=== PATIENT | male | born 1955 ===

== ENCOUNTER 2016-05-31 13:51 | Inpatient (IN) | payer OTHER ==
--- NOTE | 2016-05-31 14:12 | ED PDOC ---
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 History obtained through scribe who translated for patient. Patient describes his pain as a pressure sensation with radiation to the left shoulder yesterday. He states his pain is worse when taking deep breaths but not necessarily worse with movement or cough. Patient notes dizziness, near- syncope, shortness of breath and 1 episode of non-bilious non-bloody vomiting prior to arrival. Patient currently denies any pain or other symptoms. Patient denies any fever, nausea, diarrhea, abdominal pain, urinary symptoms or any other complaints. PMD: Dr. Haley Time/Duration: Other (2-3 days) Symptom Course: Unchanged Quality: Other Context: Home Past Medical History - Provider Review Nursing Documentation Reviewed: Yes - Infectious Disease Hx of Infectious Diseases: None - Tetanus Immunization Tetanus Immunization: Unknown - Cardiac Hx Hypertension: Yes - Endocrine/Metabolic Hx Diabetes Mellitus Type 2: Yes - Musculoskeletal/Rheumatological Hx Falls: No - Psychiatric Hx Depression: No Hx Emotional Abuse: No Hx Physical Abuse: No Hx Substance Use: No - Surgical History Hx Cardiac Catheterization: Yes (4 years ago negative) - Suicidal Assessment Feels Threatened In Home Enviroment: No Family/Social History - Physician Review Nursing Documentation Reviewed: Yes Family/Social History: No Known Family HX Smoking Status: Never Smoked Hx Alcohol Use: No Hx Substance Use: No Hx Substance Use Treatment: No Allergies/Home Meds Allergies/Adverse Reactions: Allergies No Known Allergies Allergy (Verified 11/04/13 05:46) Home Medications: Home Meds Medication Instructions Recorded Confirmed Unobtainable 05/31/16 05/31/16 Review of Systems - Physician Review All systems were reviewed & negative as marked: Yes - Review of Systems Constitutional: absent: Fevers Eyes: absent: Vision Changes Respiratory: SOB. absent: Cough Cardiovascular: Chest Pain, Other (Near-syncope) Gastrointestinal: Vomiting. absent: Abdominal Pain, Diarrhea, Nausea Genitourinary Male: absent: Dysuria, Frequency, Hematuria, Urinary Output Changes Musculoskeletal: absent: Back Pain Neurological: Dizziness Endocrine: absent: Diaphoresis, Polyuria Physical Exam Vital Signs Temp Pulse Resp BP Pulse Ox 05/31/16 14:00 98.1 F 72 16 149/93 H 98 Temperature: Afebrile Blood Pressure: Normal Pulse: Regular Respiratory Rate: Normal Appearance: Positive for: Well-Appearing, Non-Toxic, Comfortable Pain Distress: None Mental Status: Positive for: Alert and Oriented X 3 - Systems Exam Head: Present: Atraumatic, Normocephalic Pupils: Present: PERRL Conjunctiva: Present: Normal Mouth: Present: Moist Mucous Membranes Pharnyx: Present: Normal. No: ERYTHEMA Neck: Present: Normal Range of Motion Respiratory/Chest: Present: Clear to Auscultation, Good Air Exchange. No: Respiratory Distress, Accessory Muscle Use Cardiovascular: Present: Regular Rate and Rhythm, Normal S1, S2. No: Murmurs Abdomen: Present: Normal Bowel Sounds. No: Tenderness, Distention, Peritoneal Signs Back: Present: Normal Inspection Upper Extremity: Present: Normal Inspection. No: Cyanosis, Edema Lower Extremity: Present: Normal Inspection. No: Edema Neurological: Present: GCS=15, CN II-XII Intact, Speech Normal Skin: Present: Warm, Dry, Normal Color. No: Rashes Psychiatric: Present: Alert, Oriented x 3, Normal Insight, Normal Concentration Medical Decision Making ED Course and Treatment: 05/31/16 14:06 Impression: A 61 year old male with left sided chest pain. Patient notes dizziness, near- syncope, shortness of breath and 1 episode vomiting. Patient currently denies any pain. Differential Diagnosis included but are not limited to: ACS vs GERD vs pneumonia vs anxiety Plan: -- Chest xray -- Labs -- Aspirin -- Reassess and disposition Progress Notes: Report Date : 05/31/2016 15:00:58 Procedure: Chest xray Dictator : Alexi Morales MD IMPRESSION: No active disease. 05/31/16 15:19 EKG is unremarkable with unremarkable CXR and labs. Patient is high risk for acs with multiple risk factors and will need to be observed further on tele. Discussed with Dr. Ashleigh Santana. - Lab Interpretations Lab Results: 05/31/16 14:14 05/31/16 14:14 Lab Results 05/31/16 14:47: pO2 44, VBG pH 7.37, VBG pCO2 47.0, VBG HCO3 27.2, VBG Total CO2 28.6 H, VBG O2 Sat (Calc) 84.6 H, VBG Base Excess 1.3, VBG Potassium 3.8, Sodium 136.0, Chloride 104.0, Glucose 177 H, Lactate 2.8 H, FiO2 21.0, Venous Blood Potassium 3.8 05/31/16 14:14: WBC 13.1 H, RBC 4.50, Hgb 14.0, Hct 40.1 L, MCV 89.1, MCH 31.1, MCHC 34.9, RDW 12.5, Plt Count 286, MPV 9.9, Gran % 46.0 L, Lymph % (Auto) 43.6 H, [place] % (Auto) 8.2 H, Eos % (Auto) 2.0, Baso % (Auto) 0.2, Gran # 6.04, Lymph # 5.7 H, [place] # 1.1 H, Eos # 0.3, Baso # 0.03, PT 10.7, INR 0.99, APTT 26.8, Sodium 138, Chloride 98, Potassium 3.9, Carbon Dioxide 27, Anion Gap 17, BUN 12 , Creatinine 0.6, Est GFR ( Amer) > 60, Est GFR (Non-Af Amer) > 60, Random Glucose 176 H, Calcium 9.9, Total Bilirubin 0.5, AST 32, ALT 41, Alkaline Phosphatase 77, Lactate Dehydrogenase 402, Total Creatine Kinase 74, Troponin I < 0.01, NT-Pro-B Natriuret Pep 114, Total Protein 7.9, Albumin 4.4, Globulin 3.5, Albumin/Globulin Ratio 1.3, Lipase 198 I have reviewed the lab results: Yes - RAD Interpretation Radiology Orders: 05/31/16 14:09 CHEST PORTABLE [RAD] Stat - EKG Interpretation EKG Interpretation (Text): 05/31/16 15:21 sinus tachycardia @ 101 with LAD; normal intervals, normal axis. There is pseudonormalization of multiple T waves c/w EKG 05/2012. Interpreted by ED Physician: Yes Type: 12 lead EKG Comparison: Different from prev. EKG - Medication Orders Current Medication Orders: Discontinued Medications Aspirin (Aspirin Chewable) 324 mg PO STAT STA Stop: 05/31/16 14:11 Last Admin: 05/31/16 14:27 Dose: 324 MG Famotidine (Pepcid) 20 mg IVP STAT STA Stop: 05/31/16 14:33 Ondansetron HCl (Zofran Inj) 4 mg IVP STAT STA Stop: 05/31/16 14:33 - Scribe Statement The provider has reviewed the documentation as recorded by the Zariaibfavio Lee Provider Scribe Attestation: All medical record entries made by the Scribe were at my direction and personally dictated by me. I have reviewed the chart and agree that the record accurately reflects my personal performance of the history, physical exam, medical decision making, and the department course for this patient. I have also personally directed, reviewed, and agree with the discharge instructions and disposition. Disposition/Present on Arrival - Present on Arrival Any Indicators Present on Arrival: No History of DVT/PE: No History of Uncontrolled Diabetes: No Urinary Catheter: No History Surgical Site Infection Following: None - Disposition Have Diagnosis and Disposition been Completed?: Yes Diagnosis: Chest pain Disposition: HOSPITALIZED Disposition Time: 15:25 Patient Plan: Observation, Telemetry Condition: GOOD Discharge Instructions (ExitCare): Chest Pain (ED)
[2016-05-31 14:17] LABS: ADD MANUAL DIFF? NO
[2016-05-31 14:18] LABS: BASO # 0.03 K/mm3 (0.0-2.0); BASO % 0.2 % (0.0-3.0); EOS # 0.3 (0.0-0.7); GRAN # 6.04 (1.4-6.5); HEMATOCRIT 40.1 % (42.0-52.0); LYMPH # 5.7 (1.2-3.4); LYMPH % 43.6 % (22.0-35.0); MEAN CELL VOLUME 89.1 fL (80.0-105.0); MEAN CORPUSCULAR HEMOGLOBIN 31.1 pg (25.0-35.0); MEAN CORPUSCULAR HGB CONC 34.9 g/dl (31.0-37.0); MEAN PLATELET VOLUME 9.9 fl (7.0-11.0); MONO # 1.1 (0.1-0.6); MONO % 8.2 % (1.0-6.0); PLATELET COUNT 286 10^3/uL (120.0-450.0); RED CELL DISTRIBUTION WIDTH 12.5 % (11.5-14.5); WHITE BLOOD COUNT 13.1 10^3/ul (4.5-11.0)
[2016-05-31 14:27] LABS: ALB/GLOB RATIO 1.3 (1.1-1.8); ALKALINE PHOSPHATASE 77 U/L (38-133); ALT/SGPT 41 U/L (7-56); AST/SGOT 32 U/L (15-59); BILIRUBIN,TOTAL 0.5 mg/dL (0.2-1.3); BLOOD UREA NITROGEN 12 mg/dL (7-21); CALCIUM 9.9 mg/dL (8.4-10.5); CARBON DIOXIDE 27 mmol/L (21-33); CHLORIDE 98 mmol/L (98-107); GFR AFRICAN-AMERICAN > 60; GLUCOSE,RANDOM 176 mg/dL (70-110); LIPASE 198 U/L (23-300); POTASSIUM 3.9 mmol/L (3.6-5.0); SODIUM 138 mmol/L (132-148); TOTAL PROTEIN 7.9 g/dL (5.8-8.3)
[2016-05-31 14:28] LABS: INR 0.99 (0.93-1.08); PARTIAL THROMBOPLASTIN TIME 26.8 Seconds (23.7-30.8)
[2016-05-31 14:40] LABS: TROPONIN I < 0.01 ng/mL
[2016-05-31 14:49] LABS: VENOUS BLOOD GAS BASE EXCESS 1.3 mmol/L (0.0-2.0); VENOUS BLOOD PH 7.37 (7.32-7.43)
--- NOTE | 2016-05-31 15:02 | RAD ---
HISTORY: chest pain COMPARISON: No prior. FINDINGS: LUNGS: Low lung volumes. Likely poor inspiratory effort. No infiltrate. PLEURA: No significant pleural effusion identified, no pneumothorax apparent. CARDIOVASCULAR: Normal. OSSEOUS STRUCTURES: No significant abnormalities. VISUALIZED UPPER ABDOMEN: Normal. OTHER FINDINGS: None. IMPRESSION: No active disease.
--- NOTE | 2016-05-31 17:59 | CP.PCM.HP ---
<Trent Camp - Last Filed: 05/31/16 18:44> History of Present Illness - History of Present Illness History of Present Illness: 61M [place] speaking with pmh of HTN, DM2, Hypothyroidism presents to the ED with complaint of intermittent chest pain for 3 days and dizziness that became worse this morning. The pain is sharp and non-radiating. Deep breaths, palpation of sternum, and exertion make his pain worse. He also complains nausea and non-bloody, non-bilious vomiting earlier today on his way to the hospital. Currently, he does not have any chest pain and denies headache, LOC, changes in vision/hearing, back pain or any GI/ symptoms. PMD: Dr. 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 absent: Fever, Headache, Weakness - EENT Eyes: absent: Blurred Vision, Change in Vision Ears: absent: Ear Pain, Tinnitus Nose/Mouth/Throat: absent: Nasal Congestion, Nasal Discharge - Cardiovascular Cardiovascular: Chest Pain, Chest Pain at Rest, Chest Pain with Activity, Dyspnea - Respiratory Respiratory: Dyspnea. absent: Cough, Hemoptysis - Gastrointestinal Gastrointestinal: Nausea, Vomiting. absent: Abdominal Pain, Constipation, Diarrhea - Genitourinary Genitourinary: absent: Difficulty Urinating, Dysuria, Urinary Incontinence - Musculoskeletal Musculoskeletal: absent: Back Pain, Muscle Weakness, Neck Pain - Integumentary Integumentary: absent: Rash, Skin Pain, Wounds - Neurological Neurological: Dizziness. absent: Behavioral Changes, Numbness, Focal Weakness, Headaches, Syncope - Psychiatric Psychiatric: Anxiety - Endocrine Endocrine: Cold Intolorance. absent: Fatigue, Polydipsia, Polyphagia Past Patient History - Infectious Disease Hx of Infectious Diseases: None - Tetanus Immunizations Tetanus Immunization: Unknown - Past Medical History & Family History Past Medical History?: Yes Pertinent Family History: FH sig for hypertension - Past Social History Smoking Status: Never Smoked Chewing Tobacco Use: No Cigar Use: No Alcohol: None Drugs: Denies Home Situation {Lives}: Friends - CARDIAC Hx Hypertension: Yes - ENDOCRINE/METABOLIC Hx Diabetes Mellitus Type 2: Yes Hx Hypothyroidism: Yes - MUSCULOSKELETAL/RHEUMATOLOGICAL Hx Falls: No - PSYCHIATRIC Hx Depression: No Hx Emotional Abuse: No Hx Physical Abuse: No Hx Substance Use: No - SURGICAL HISTORY Hx Cardiac Catheterization: Yes (4 years ago negative) Meds Allergies/Adverse Reactions: Allergies Allergy/AdvReac Type Severity Reaction Status Date / Time No Known Allergies Allergy Verified 11/04/13 05:46 Physical Exam - Constitutional Appears: Well, Non-toxic, No Acute Distress - Head Exam Head Exam: ATRAUMATIC, NORMOCEPHALIC - Eye Exam Eye Exam: EOMI - ENT Exam ENT Exam: Mucous Membranes Moist - Neck Exam Neck exam: Positive for: Full Rom, Normal Inspection. Negative for: Lymphadenopathy - Respiratory Exam Respiratory Exam: Clear to Auscultation Bilateral, NORMAL BREATHING PATTERN. absent: Rhonchi, Wheezes - Cardiovascular Exam Cardiovascular Exam: REGULAR RHYTHM, RRR, +S1, +S2. absent: JVD Additional comments: pain on palpation of sternum - GI/Abdominal Exam GI & Abdominal Exam: Normal Bowel Sounds, Soft. absent: Tenderness - Extremities Exam Extremities exam: Positive for: full ROM. Negative for: joint swelling, pedal edema - Back Exam Back exam: NORMAL INSPECTION. absent: paraspinal tenderness, rash noted - Neurological Exam Neurological exam: Alert, CN II-XII Intact, Oriented x3 - Psychiatric Exam Psychiatric exam: Anxious, Normal Affect, Normal Mood - Skin Skin Exam: Dry, Intact, Normal Color, Warm Results - Vital Signs Recent Vital Signs: Last Vital Signs Temp 98.1 F 05/31/16 14:00 Pulse 72 05/31/16 14:00 Resp 16 05/31/16 14:00 BP 149/93 H 05/31/16 14:00 Pulse Ox 98 05/31/16 14:00 - Labs Result Diagrams: 05/31/16 14:14 05/31/16 14:14 Assessment & Plan (1) Chest pain Status: Acute (2) Dizziness Status: Acute - Assessment and Plan (Free Text) Assessment: 61M with pmh of HTN, DM2 presents with chest pain(ACS vs MSK) and dizziness ( neuro vs cardio). ACS work up negative in ED, will continue to follow up trops. Plan: Chest Pain CXR - No Active Dz EKG - unremarkable, sinus tacky at 101, normal axis, normal interval (see report for further details) EKG 06/01 Trop x1 negative Cardio consult: Dr. Osborne ASA Lipitor Metoprolol D-dimer Lipid Panel Heart Healthy Diet Dizziness Orthostatics CT Head Neuro consult: Dr. Wilmer Ray B12 Meclizine PRN Zofran PRN Leukocytosis CBC Procalcitonin Blood Cultures UA Hypothyroidism TSH T3 T4 Diabetes ISS w/ Accucheck ACHS HgbA1C CMP Gabapentin PPX DVT -Heparin GI -Protonix - Date & Time Date: 05/31/16 Time: 04:30 <Ashleigh Santana - Last Filed: 06/01/16 13:22> Results - Vital Signs Recent Vital Signs: Last Vital Signs Temp 98.1 F 06/01/16 05:45 Pulse 82 06/01/16 10:00 Resp 18 06/01/16 09:00 BP 129/80 06/01/16 10:00 Pulse Ox 97 06/01/16 09:00 - Labs Result Diagrams: 06/01/16 06:00 06/01/16 06:00 Labs: Laboratory Results - last 24 hr 05/31/16 05/31/16 06/01/16 21:35 21:55 02:30 WBC RBC Hgb Hct MCV MCH MCHC RDW Plt Count MPV Gran % Lymph % (Auto) [place] % (Auto) Eos % (Auto) Baso % (Auto) Gran # Lymph # [place] # Eos # Baso # APTT D-Dimer, Quantitative 0.19 pO2 41 61 H VBG pH 7.41 7.42 VBG pCO2 42.0 39.0 L VBG HCO3 26.6 25.3 VBG Total CO2 27.9 26.5 VBG O2 Sat (Calc) 80.1 H 95.0 H VBG Base Excess 1.7 0.8 VBG Potassium 4.0 3.7 Sodium 135.0 134.0 Chloride 105.0 103.0 Glucose 183 H 212 H Lactate 2.9 H 2.4 H FiO2 21.0 21.0 Potassium Carbon Dioxide Anion Gap BUN Creatinine Est GFR ( Amer) Est GFR (Non-Af Amer) POC Glucose (mg/dL) 158 H Random Glucose Calcium Total Bilirubin AST ALT Alkaline Phosphatase Lactate Dehydrogenase 346 Total Creatine Kinase 68 Troponin I < 0.01 Total Protein Albumin Globulin Albumin/Globulin Ratio Procalcitonin 0.05 L Thyroxine (T4) 8.2 Total T3 1.21 TSH 3rd Generation 3.42 Venous Blood Potassium 4.0 3.7 06/01/16 06/01/16 06/01/16 06:00 06:35 07:26 WBC 7.1 D RBC 4.25 Hgb 12.8 L Hct 38.4 L MCV 90.4 MCH 30.1 MCHC 33.3 RDW 12.5 Plt Count 261 MPV 9.9 Gran % 47.8 L Lymph % (Auto) 41.0 H [place] % (Auto) 7.9 H Eos % (Auto) 2.9 Baso % (Auto) 0.4 Gran # 3.41 Lymph # 2.9 [place] # 0.6 Eos # 0.2 Baso # 0.03 APTT 28.0 D-Dimer, Quantitative pO2 77 H VBG pH 7.37 VBG pCO2 45.0 VBG HCO3 26.0 VBG Total CO2 27.4 VBG O2 Sat (Calc) 98.1 H VBG Base Excess 0.3 VBG Potassium 3.9 Sodium 138 135.0 Chloride 100 104.0 Glucose 191 H Lactate 2.4 H FiO2 21.0 Potassium 4.0 Carbon Dioxide 27 Anion Gap 15 BUN 11 Creatinine 0.6 Est GFR ( Amer) > 60 Est GFR (Non-Af Amer) > 60 POC Glucose (mg/dL) 181 H Random Glucose 184 H Calcium 9.0 Total Bilirubin 0.6 AST 36 ALT 39 Alkaline Phosphatase 64 Lactate Dehydrogenase 331 L Total Creatine Kinase 70 Troponin I 0.02 D Total Protein 7.3 Albumin 4.1 Globulin 3.2 Albumin/Globulin Ratio 1.3 Procalcitonin Thyroxine (T4) Total T3 TSH 3rd Generation Venous Blood Potassium 3.9 06/01/16 06/01/16 11:00 11:48 WBC RBC Hgb Hct MCV MCH MCHC RDW Plt Count MPV Gran % Lymph % (Auto) [place] % (Auto) Eos % (Auto) Baso % (Auto) Gran # Lymph # [place] # Eos # Baso # APTT D-Dimer, Quantitative pO2 60 H VBG pH 7.40 VBG pCO2 44.0 VBG HCO3 27.3 VBG Total CO2 28.7 H VBG O2 Sat (Calc) 95.0 H VBG Base Excess 2.0 VBG Potassium 4.2 Sodium 137.0 Chloride 102.0 Glucose 272 H Lactate 3.0 H FiO2 21.0 Potassium Carbon Dioxide Anion Gap BUN Creatinine Est GFR ( Amer) Est GFR (Non-Af Amer) POC Glucose (mg/dL) 205 H Random Glucose Calcium Total Bilirubin AST ALT Alkaline Phosphatase Lactate Dehydrogenase Total Creatine Kinase Troponin I Total Protein Albumin Globulin Albumin/Globulin Ratio Procalcitonin Thyroxine (T4) Total T3 TSH 3rd Generation Venous Blood Potassium 4.2 Attending/Attestation - Attestation I have personally seen and examined this patient.: Yes I have fully participated in the care of the patient.: Yes I have reviewed all pertinent clinical information: Yes Notes (Text): I have seen and examined patient at bedside. Agree with the above note with the following additions/exception: This is 61 year old [place] Male with history of HTN, DM2, Hypothyroidism, history of normal cardiac cath in 2009 who got admitted for evaluation of intermittent chest pain, dizziness and vomiting. Will do serial cardiac iso, ekg, echo, cardio consult. Will check ct head. Will start meclizine. Ordered orthostatics and neuro consult. He also was found to have leukocytosis and elevated lactate. Will order cultures and procal. Will hold off on starting any abx at this time. Upon discharge patient will follow up with Dr Haley. Dr Ashleigh Santana
[2016-05-31 19:24] LABS: CHOLESTEROL 164 mg/dL (130-200)
--- NOTE | 2016-05-31 20:24 | CON ---
DATE: 05/31/2016 REASON FOR CONSULTATION: Dizziness. HISTORY OF PRESENTING ILLNESS: The patient is a 61-year-old male who was in his usual state of healt h until this morning when he started experiencing dizziness. Dizziness is described as spinning sens ation. Because of the dizziness it was difficult for him to walk. He did not have any focal weaknes s in arms or legs. Did not lose any vision. Dizziness was associated with nausea, and he also vomit ed 3 times. The dizziness was also associated with some chest pain. The dizziness lasted for about 30-40 minutes, and after that started getting better. Now, he feels a lot better. Dizziness is almo st gone, but he still has some chest pressure. PAST MEDICAL HISTORY: Includes hypertension, diabetes mellitus, hypothyroidism. His medications at home included metformin, glipizide, levothyroxine, pravastatin, and gabapentin. ALLERGIES: No known drug allergies. SOCIAL HISTORY: Denies smoking, socially drinks alcohol. Denies use of any illicit drugs. FAMILY HISTORY: Reviewed and noncontributory. GENERAL PHYSICAL EXAMINATION: The patient is a middle-aged male lying on the bed in no acute distress. His blood pressure is 155/86, heart rate 79 per minute, breathing at a rate of 16 per minute, tempera ture is 98 degrees Fahrenheit. HENT EXAMINATION: Head is normocephalic, atraumatic. NECK: Supple. There are no carotid bruits. LUNGS: Clear. CARDIOVASCULAR SYSTEM EXAMINATION: S1, S2 audible, no murmurs. ABDOMEN: Soft, nontender, bowel sounds present. NEUROLOGY EXAMINATION: MENTAL STATUS: The patient is awake, alert, oriented to time, place, person. Speech is fluent. Nam ing and repetition normal. Memory and cognition are intact. CRANIAL NERVE EXAMINATION: Pupils are 4 mm, bilaterally reactive to light. Visual jarrell are full. Extraocular movements are intact. There is no facial asymmetry. Palate is upgoing bilaterally and tongue is midline. MOTOR EXAMINATION: Tone is normal. Power is 5/5 bilaterally in all extremities. Reflexes +1 and sy mmetrical. Plantars downgoing bilaterally. CEREBELLAR EXAMINATION: Xdoarb-oh-zdln shows no dysmetria. SENSORY EXAMINATION: Intact to soft touch, pinprick. GAIT: Narrow based. Labs reviewed shows WBC of 13.1, hemoglobin of 14.0, hematocrit of 40.1, and platelets of 286. His I NR is 0.99. Sodium is 138, potassium 3.9, chloride 98, carbon dioxide 27, BUN of 12, creatinine 0.6, and glucose of 176. 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 Rule out any cem tral etiology. RECOMMENDATIONS: 1. The patient to have MRI of the brain without contrast. 2. The patient to be continued on meclizine, as apparently his dizziness is being helped by it. 3. I agree with cardiology evaluation for his chest pain. 4. Please continue other treatment. Thank you for the opportunity to participate in the care of this patient. Margarita Santana MD cc: [id number] TT: 05/31/2016 20:24:12 Confirmation # [id number] Dictation # [id number]
[2016-05-31 20:33] VITALS: BMI 298.3
[2016-05-31 22:06] LABS: VENOUS BLOOD GAS BASE EXCESS 1.7 mmol/L (0.0-2.0); VENOUS BLOOD PH 7.41 (7.32-7.43)
[2016-05-31] MEDS: Insulin Reg-MEDIUM-Coverage SC SCH (22:13)
[2016-05-31 22:34] LABS: TROPONIN I < 0.01 ng/mL
[2016-05-31 22:37] LABS: T4 8.2 ug/dL (5.5-11.0)
[2016-05-31 22:51] LABS: T3 1.21 ng/mL (0.97-1.69); THYROID STIMULATING HORMONE 3.42 mIU/mL (0.46-4.68)
[2016-06-01 02:47] LABS: VENOUS BLOOD GAS BASE EXCESS 0.8 mmol/L (0.0-2.0); VENOUS BLOOD PH 7.42 (7.32-7.43)
[2016-06-01 06:31] LABS: ADD MANUAL DIFF? NO
[2016-06-01 06:39] LABS: VENOUS BLOOD GAS BASE EXCESS 0.3 mmol/L (0.0-2.0); VENOUS BLOOD PH 7.37 (7.32-7.43)
[2016-06-01 06:41] LABS: BASO # 0.03 K/mm3 (0.0-2.0); BASO % 0.4 % (0.0-3.0); EOS # 0.2 (0.0-0.7); EOS % 2.9 % (1.5-5.0); GRAN # 3.41 (1.4-6.5); GRAN % 47.8 % (50.0-68.0); HEMATOCRIT 38.4 % (42.0-52.0); LYMPH # 2.9 (1.2-3.4); MEAN CELL VOLUME 90.4 fL (80.0-105.0); MEAN CORPUSCULAR HEMOGLOBIN 30.1 pg (25.0-35.0); MEAN CORPUSCULAR HGB CONC 33.3 g/dl (31.0-37.0); MEAN PLATELET VOLUME 9.9 fl (7.0-11.0); MONO # 0.6 (0.1-0.6); MONO % 7.9 % (1.0-6.0); PLATELET COUNT 261 10^3/uL (120.0-450.0); RED CELL DISTRIBUTION WIDTH 12.5 % (11.5-14.5); WHITE BLOOD COUNT 7.1 10^3/ul (4.5-11.0)
[2016-06-01 07:01] LABS: ALB/GLOB RATIO 1.3 (1.1-1.8); ALKALINE PHOSPHATASE 64 U/L (38-133); ALT/SGPT 39 U/L (7-56); AST/SGOT 36 U/L (15-59); BILIRUBIN,TOTAL 0.6 mg/dL (0.2-1.3); BLOOD UREA NITROGEN 11 mg/dL (7-21); CARBON DIOXIDE 27 mmol/L (21-33); CHLORIDE 100 mmol/L (98-107); GFR AFRICAN-AMERICAN > 60; GLUCOSE,RANDOM 184 mg/dL (70-110); SODIUM 138 mmol/L (132-148); TOTAL PROTEIN 7.3 g/dL (5.8-8.3)
[2016-06-01 07:15] LABS: TROPONIN I 0.02 ng/mL
[2016-06-01] MEDS: Insulin Reg-MEDIUM-Coverage SC SCH ×3 (07:47→17:03)
[2016-06-01] MEDS: Pantoprazole 40 mg EC Tab PO SCH (07:47)
--- NOTE | 2016-06-01 07:51 | CT ---
PROCEDURE: CT HEAD WITHOUT CONTRAST. HISTORY: Dizziness COMPARISON: None available. TECHNIQUE: Axial computed tomography images were obtained through the head/brain without intravenous contrast. Radiation dose: Total exam DLP = 725.84 mGy-cm. FINDINGS: HEMORRHAGE: No intracranial hemorrhage. BRAIN: [place]-white matter differentiation is preserved. There is no mass, mass effect or abnormal extra-axial fluid collection. There is normal density in the larger dural venous sinuses. VENTRICLES: The ventricles are normal in size, shape and configuration. CALVARIUM: The skull base and calvarium are normal. PARANASAL SINUSES: There is mild scattered mucoperiosteal thickening in the ethmoid air cells and left sphenoid chamber and an osteoma in the right anterior ethmoid air cells. . MASTOID AIR CELLS: Predominantly clear. OTHER FINDINGS: None. IMPRESSION: No acute intracranial abnormality.
--- NOTE | 2016-06-01 08:44 | MRI ---
PROCEDURE: MRI BRAIN WITHOUT CONTRAST HISTORY: Dizziness COMPARISON: Noncontrast head CT from 05/31/2016 TECHNIQUE: Multiplanar, multisequence MR images of the brain were obtained without intravenous contrast enhancement. FINDINGS: HEMORRHAGE: None DWI: No evidence of an acute or early subacute infarction. BRAIN PARENCHYMA: There are mild chronic microangiopathic changes. [place]-white matter differentiation is preserved. There is no mass, mass effect or abnormal extra-axial fluid collection. The midline sagittal structures are normal. VENTRICLES: There is mild age-related global parenchymal volume loss and proportionate enlargement of the ventricles and cortical sulci. There is a cavum septum pellucidum CRANIUM: There is normal bone marrow signal pattern. ORBITS: Both globes are within normal limits. PARANASAL SINUSES/MASTOIDS: There is mild mucosal thickening in the paranasal sinuses and retention cysts/polyps in the left maxillary sinus. VASCULAR SYSTEM: There are normal signal voids in the larger intracranial arteries. OTHER FINDINGS: None. IMPRESSION: No acute intracranial abnormality. Mild chronic microangiopathic changes. Mild age-related global parenchymal volume loss.
--- NOTE | 2016-06-01 10:04 | CARD ---
APPROVED REPORT EKG Measurement Heart [id number] <Conclusion> Sinus tachycardia Left anterior fascicular block Possible Lateral infarct, age undetermined Cannot rule out Inferior infarct (masked by fascicular block?), age undetermined NSSTWchanges Low voltage limb leads
--- NOTE | 2016-06-01 10:38 | CARD ---
APPROVED REPORT EKG Measurement Heart [id number] <Conclusion> Normal sinus rhythm Low voltage QRS LAHB PRWP V 1 - 6 Possible IMI, age unknown NSSTW changes No change
--- NOTE | 2016-06-01 19:05 | CON ---
DATE: 06/01/2016 REASON FOR CONSULTATION: Chest pain. The patient is a 61-year-old male who has a history of diabetes mellitus, hyperlipidemia. P resented because of chest discomfort. The patient is unaware of any history of heart attack in the p ast. He is currently chest pain free. SOCIAL HISTORY: The patient is a nonsmoker. MEDICATIONS: Meclizine 25 mg q. 6 hours, aspirin 81 mg once a day, Lipitor 10 mg once a day, Lopress or 12.5 mg twice a day, Neurontin 100 mg twice a day, Protonix 40 mg p.o. once a day, Zofran 4 mg int ravenously q. 6 hours p.r.n. REVIEW OF SYSTEMS: No fever or chills. No vomiting or diarrhea. The patient did experience dizzine ss on admission, but no syncope. PHYSICAL EXAMINATION: The patient is a middle-aged male who does not appear to be in any distress. VITAL SIGNS: Blood pressure 142/85, heart rate 78, temperature 98.1, respiration 18. HENT: Normocephalic. NECK: No JVD. CHEST: Clear. HEART: S1, S2 regular. ABDOMEN: Soft. EXTREMITIES: No edema. LABORATORIES: Hemoglobin and hematocrit 12.8 and 38.4, white count and platelet count are within nor mal limits. SMA-7 is within normal limits except for glucose of 184. Two sets of troponins are nega tive. EKG revealed sinus rhythm. Consider old lateral myocardial infarction. I did review the echocardiog raph study which revealed moderately depressed ejection fraction with septal hypokinesis. ASSESSMENT: 1. Chest pain. Myocardial infarction was ruled out. 2. Rule out ischemic cardiomyopathy. 3. Uncontrolled diabetes mellitus. RECOMMENDATIONS: Continue current Lipitor and Lopressor therapy. Start Coreg at 3.125 mg twice a da y. Continue aspirin 81 mg once a day. Continue Lipitor 10 mg once a day. Cardiac catheterization w ill be presented to the patient, and if he agrees the patient will undergo the procedure Saturday at [facility]. Jordan Osborne MD cc: [id number] TT: 06/01/2016 19:05:16 Confirmation # [id number] Dictation # [id number]
--- NOTE | 2016-06-01 22:38 | CP.PCM.PN ---
<Trent Camp - Last Filed: 06/01/16 22:30> Subjective - Date & Time of Evaluation Date of Evaluation: 06/01/16 Time of Evaluation: 08:15 - Subjective Subjective: 61M Croatian speaking with pmh of HTN, DM2, Hypothyroidism presents to the ED with complaint of intermittent chest pain for 3 days and dizziness Per nurse no complaints overnight. He still complains of slight dizziness. 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 Currently, he does not have any chest pain and denies headache, LOC, changes in vision/hearing, back pain or any GI/ symptoms. Objective - Vital Signs/Intake and Output Vital Signs (last 24 hours): Temp Pulse Resp BP Pulse Ox 98.2 F 78 20 142/85 97 06/01/16 18:00 06/01/16 18:03 06/01/16 18:00 06/01/16 18:00 06/01/16 09:00 - Medications Medications: Current Medications Aspirin (Aspirin Chewable) 81 mg PO DAILY [facility] Last Admin: 06/01/16 10:00 Dose: 81 mg Atorvastatin Calcium (Lipitor) 10 mg PO DIN [facility] Last Admin: 06/01/16 17:06 Dose: 10 mg Gabapentin (Neurontin) 100 mg PO BID [facility] PRN Reason: Protocol Last Admin: 06/01/16 17:06 Dose: 100 mg Insulin Human Regular (Humulin R Med) 0 units SC ACHS [facility] PRN Reason: Protocol Last Admin: 06/01/16 17:03 Dose: 1 units Losartan Potassium (Cozaar) 12.5 mg PO DAILY [facility] Last Admin: 06/01/16 17:22 Dose: 12.5 mg Meclizine HCl (Antivert) 25 mg PO Q6 [facility] Last Admin: 06/01/16 17:05 Dose: 25 mg Metoprolol Tartrate (Lopressor) 12.5 mg PO BID [facility] Last Admin: 06/01/16 17:05 Dose: 12.5 mg Ondansetron HCl (Zofran Inj) 4 mg IVP Q6 PRN PRN Reason: Nausea/Vomiting Pantoprazole Sodium (Protonix Ec Tab) 40 mg PO ACB [facility] Last Admin: 06/01/16 07:47 Dose: 40 mg Pneumococcal Polyvalent Vaccine (Pneumovax 23 Vaccine) 0.5 ml IM .ONCE ONE Stop: 06/02/16 10:01 - Labs Labs: PT 10.7 Seconds (9.9-11.8) 05/31/16 14:14 INR 0.99 (0.93-1.08) 05/31/16 14:14 APTT 28.0 Seconds (23.7-30.8) 06/01/16 06:00 - Constitutional Appears: Well, Non-toxic, No Acute Distress - Head Exam Head Exam: ATRAUMATIC, NORMOCEPHALIC - Eye Exam Eye Exam: EOMI - ENT Exam ENT Exam: Mucous Membranes Moist - Neck Exam Neck Exam: Full ROM, Normal Inspection. absent: Lymphadenopathy, Meningismus - Respiratory Exam Respiratory Exam: Clear to Ausculation Bilateral, NORMAL BREATHING PATTERN - Cardiovascular Exam Cardiovascular Exam: REGULAR RHYTHM, RRR, +S1, +S2. absent: JVD - GI/Abdominal Exam GI & Abdominal Exam: Soft, Normal Bowel Sounds. absent: Tenderness - Extremities Exam Extremities Exam: Full ROM. absent: Joint Swelling, Pedal Edema - Back Exam Back Exam: NORMAL INSPECTION - Neurological Exam Neurological Exam: Alert, Awake, CN II-XII Intact, Normal Gait, Oriented x3 - Psychiatric Exam Psychiatric exam: Normal Affect, Normal Mood - Skin Skin Exam: Dry, Intact, Normal Color, Warm Assessment and Plan (1) Chest pain Status: Acute (2) Dizziness Status: Acute - Assessment and Plan (Free Text) Assessment: 61M with pmh of HTN, DM2 presents with chest pain(ACS vs MSK) and dizziness ( neuro vs cardio). ACS work up is ongoing. EKG, CXR, Trops were negative. Echocardiogram was positive for moderately depressed EF with septal hypokinesis. Plan: Chest Pain CXR - No Active Dz EKG - unremarkable, sinus tacky at 101, normal axis, normal interval (see report for further details) EKG 06/01 no change from previous Trop x3 negative ECHO moderately depressed EF with septal hypokinesis. Cardio consult: Dr. Osborne -recommends cardiac cath on SaturdayJune 04 ASA Lipitor Metoprolol start Coreg 3.125 BID D-dimer negative Lipid Panel - sig for high TG at 506 Heart Healthy Diet Dizziness DixHallpike test postive per Physical Therapy Orthostatics CT Head negative for acute intracranial abnormality MRI Head negative for acute intracranial abnormality Neuro consult: Dr. Wilmer Ray continue current treatment B12 normal Meclizine PRN Zofran PRN Leukocytosis - resolved CBC 06/01 7.1 Procalcitonin negative Blood Cultures NG 24hrs UA uncollected Hypothyroidism TSH normal T3 normal T4 normal Diabetes ISS w/ Accucheck ACHS HgbA1C 9.0 high, less than previously stated 10 CMP Gabapentin PPX DVT -Heparin GI -Protonix <Zulay Santanamaribeth B - Last Filed: 06/02/16 16:09> Objective - Vital Signs/Intake and Output Vital Signs (last 24 hours): Temp Pulse Resp BP Pulse Ox 98.4 F 74 18 116/80 97 06/02/16 12:00 06/02/16 12:00 06/02/16 12:00 06/02/16 12:00 06/01/16 09:00 Intake and Output: 06/02/16 06/02/16 06:59 18:59 Intake Total 720 120 Output Total 900 400 Balance -180 -280 - Medications Medications: Current Medications Aspirin (Aspirin Chewable) 81 mg PO DAILY [facility] Last Admin: 06/02/16 09:31 Dose: 81 mg Atorvastatin Calcium (Lipitor) 10 mg PO DIN [facility] Last Admin: 06/01/16 17:06 Dose: 10 mg Carvedilol (Coreg) 3.125 mg PO BID [facility] Last Admin: 06/02/16 09:34 Dose: 3.125 mg Gabapentin (Neurontin) 100 mg PO BID [facility] PRN Reason: Protocol Last Admin: 06/02/16 09:34 Dose: 100 mg Insulin Human Regular (Humulin R Med) 0 units SC ACHS [facility] PRN Reason: Protocol Last Admin: 06/02/16 12:23 Dose: 5 units Losartan Potassium (Cozaar) 12.5 mg PO DAILY [facility] Last Admin: 06/02/16 09:31 Dose: 12.5 mg Meclizine HCl (Antivert) 25 mg PO Q6 [facility] Last Admin: 06/02/16 12:24 Dose: 25 mg Ondansetron HCl (Zofran Inj) 4 mg IVP Q6 PRN PRN Reason: Nausea/Vomiting Pantoprazole Sodium (Protonix Ec Tab) 40 mg PO ACB [facility] Last Admin: 06/02/16 08:30 Dose: 40 mg - Labs Labs: 06/02/16 07:58 06/02/16 07:58 PT 10.7 Seconds (9.9-11.8) 05/31/16 14:14 INR 0.99 (0.93-1.08) 05/31/16 14:14 APTT 28.0 Seconds (23.7-30.8) 06/01/16 06:00 Attending/Attestation - Attestation I have personally seen and examined this patient.: Yes I have fully participated in the care of the patient.: Yes I have reviewed all pertinent clinical information, including history, physical exam and plan: Yes Notes (Text): I have seen and examined patient at bedside. Agree with the above note with the following additions/exception: This is 61 year old Croatian Male with history of HTN, DM2, Hypothyroidism, history of normal cardiac cath in 2009 who got admitted for evaluation of intermittent chest pain, dizziness and vomiting. Chest pain and vomiting has resolved however still complains of mild dizziness. Echo revealed EF of 40-45% with septal hypokinesis. Discussed with loading unit operator powder charging. Plan for cardiac cath to rule out ischemic cardiomyopathy. Serial cardiac iso within normal limits. CT and MRI head is normal. Continue meclizine. Neuro consult appreciated. He also was found to have leukocytosis and elevated lactate. Cultures and procal pending. Will hold off on starting any abx at this time. Hypertriglyceridemia was noted. TG are 503. Life style modifications advised. Continue lipitor. Upon discharge patient will follow up with Dr Haley. Dr Ashleigh Santana
[2016-06-02] MEDS: Insulin Reg-MEDIUM-Coverage SC SCH ×5 (03:29→22:05)
[2016-06-02 07:59] LABS: ADD MANUAL DIFF? NO
[2016-06-02 08:05] LABS: BASO # 0.02 K/mm3 (0.0-2.0); BASO % 0.3 % (0.0-3.0); EOS # 0.2 (0.0-0.7); EOS % 3.1 % (1.5-5.0); GRAN % 53.4 % (50.0-68.0); HEMATOCRIT 40.1 % (42.0-52.0); LYMPH # 2.7 (1.2-3.4); LYMPH % 35.6 % (22.0-35.0); MEAN CELL VOLUME 89.9 fL (80.0-105.0); MEAN CORPUSCULAR HEMOGLOBIN 30.9 pg (25.0-35.0); MEAN CORPUSCULAR HGB CONC 34.4 g/dl (31.0-37.0); MEAN PLATELET VOLUME 9.8 fl (7.0-11.0); MONO # 0.6 (0.1-0.6); MONO % 7.6 % (1.0-6.0); PLATELET COUNT 242 10^3/uL (120.0-450.0); RED CELL DISTRIBUTION WIDTH 12.6 % (11.5-14.5); WHITE BLOOD COUNT 7.7 10^3/ul (4.5-11.0)
[2016-06-02 08:21] LABS: ALB/GLOB RATIO 1.2 (1.1-1.8); ALKALINE PHOSPHATASE 64 U/L (38-133); ALT/SGPT 37 U/L (7-56); AST/SGOT 42 U/L (15-59); BILIRUBIN,TOTAL 0.6 mg/dL (0.2-1.3); BLOOD UREA NITROGEN 12 mg/dL (7-21); CALCIUM 8.9 mg/dL (8.4-10.5); CARBON DIOXIDE 28 mmol/L (21-33); CHLORIDE 99 mmol/L (95-110); GFR AFRICAN-AMERICAN > 60; GLUCOSE,RANDOM 207 mg/dL (70-110); POTASSIUM 4.1 mmol/L (3.6-5.0); SODIUM 136 mmol/L (132-148); TOTAL PROTEIN 7.5 g/dL (5.8-8.3)
[2016-06-02] MEDS: Pantoprazole 40 mg EC Tab PO SCH (08:30)
--- NOTE | 2016-06-02 09:03 | CARD ---
APPROVED REPORT EXAM: Two-dimensional and M-mode echocardiogram with Doppler and color Doppler. Other Information Quality : FairRhythm : INDICATION LV Function:SystolicDiastolic 2D DIMENSIONS Left Atrium (2D)4.2 (1.6-4.0cm)IVSd1.1 (0.7-1.1cm) LVDd4.3 (3.9-5.9cm)PWd1.2 (0.7-1.1cm) LVDs3.4 (2.5-4.0cm)FS (%) 20.6 % LVEF (%)45.0 (>50%) M-Mode DIMENSIONS Aortic Root3.30 (2.2-3.7cm)Aortic Cusp Exc.2.00 (1.5-2.0cm) Aortic Valve AoV Peak Csnhjehc653.0cm/s Mitral Valve MV E Cvmwgkar11.1cm/sMV A Hgscmdcv33.7cm/sE/A ratio0.7 TDI E/Lateral E'0.0E/Medial E'0.0 Tricuspid Valve TR Peak Ymixhpet080dk/sRAP YDPZZPUK29wuMbZD Peak Gr.26mmHg PWIA45mgBz LEFT VENTRICLE The left ventricle is normal size. There is normal left ventricular wall thickness. Left ventricle systolic function is mildly impaired. The Ejection Fraction is 40-45%. There is mild global hypokinesis. RIGHT VENTRICLE The right ventricle is normal size. ATRIA The left atrium size is normal. The right atrium size is normal. The interatrial septum is intact with no evidence for an atrial septal defect. AORTIC VALVE The aortic valve is mildly thickened but opens well. There is trace aortic regurgitation. MITRAL VALVE The mitral valve is normal in structure. Mitral regurgitation is mild. TRICUSPID VALVE The tricuspid valve is normal in structure. There is mild tricuspid regurgitation. PULMONIC VALVE The pulmonic valve is not well visualized. GREAT VESSELS The aortic root is normal in size. PERICARDIAL EFFUSION There is no pericardial effusion. <Conclusion> The left ventricle is normal size. There is normal left ventricular wall thickness. Left ventricle systolic function is mildly impaired. The Ejection Fraction is 40-45%. There is mild global hypokinesis. Mitral regurgitation is mild. There is mild tricuspid regurgitation.
[2016-06-02] MEDS ORDERED: Pneumococcal 23-Valent Vaccine IM ONE (10:00)
--- NOTE | 2016-06-02 14:35 | PN ---
DATE: 06/02/2016 SUBJECTIVE: The patient denies any chest pain. PHYSICAL EXAMINATION: VITAL SIGNS: Blood pressure 116/80, heart rate 74, temperature 98.4, respiration 18. HEENT: Normocephalic. NECK: No JVD. CHEST: Clear. HEART: S1, S2 regular. EXTREMITIES: No edema. LABORATORIES: SMA-7 is within normal limits except for glucose of 207, hemoglobin and hematocrit 13. 8 and 40.1. ASSESSMENT: 1. Chest pain, myocardial infarction was ruled out. 2. Rule out ischemic cardiomyopathy. 3. Uncontrolled diabetes mellitus. RECOMMENDATIONS: Continue current aspirin, Coreg, Cozaar, Lipitor. The patient will undergo cardiac catheterization on Saturday. Jordan Osborne MD cc: [id number] TT: 06/02/2016 14:34:27 Confirmation # [id number] Dictation # [id number]
--- NOTE | 2016-06-02 15:51 | CP.PCM.PN ---
<Victor Hugo Wang - Last Filed: 06/02/16 15:45> Subjective - Date & Time of Evaluation Date of Evaluation: 06/02/16 Time of Evaluation: 07:59 - Subjective Subjective: Pt seen and examined. Pt reports that he is feeling well. Pt denies headache, dizziness, fever, chills, chest pain, shortness of breath, nausea, and vomiting. Objective - Vital Signs/Intake and Output Vital Signs (last 24 hours): Temp Pulse Resp BP Pulse Ox 98.4 F 74 18 116/80 97 06/02/16 12:00 06/02/16 12:00 06/02/16 12:00 06/02/16 12:00 06/01/16 09:00 Intake and Output: 06/02/16 06/02/16 06:59 18:59 Intake Total 720 120 Output Total 900 400 Balance -180 -280 - Medications Medications: Current Medications Aspirin (Aspirin Chewable) 81 mg PO DAILY [facility] Last Admin: 06/02/16 09:31 Dose: 81 mg Atorvastatin Calcium (Lipitor) 10 mg PO DIN [facility] Last Admin: 06/01/16 17:06 Dose: 10 mg Carvedilol (Coreg) 3.125 mg PO BID [facility] Last Admin: 06/02/16 09:34 Dose: 3.125 mg Gabapentin (Neurontin) 100 mg PO BID [facility] PRN Reason: Protocol Last Admin: 06/02/16 09:34 Dose: 100 mg Insulin Human Regular (Humulin R Med) 0 units SC ACHS [facility] PRN Reason: Protocol Last Admin: 06/02/16 12:23 Dose: 5 units Losartan Potassium (Cozaar) 12.5 mg PO DAILY [facility] Last Admin: 06/02/16 09:31 Dose: 12.5 mg Meclizine HCl (Antivert) 25 mg PO Q6 [facility] Last Admin: 06/02/16 12:24 Dose: 25 mg Ondansetron HCl (Zofran Inj) 4 mg IVP Q6 PRN PRN Reason: Nausea/Vomiting Pantoprazole Sodium (Protonix Ec Tab) 40 mg PO ACB [facility] Last Admin: 06/02/16 08:30 Dose: 40 mg - Labs Labs: 06/02/16 07:58 06/02/16 07:58 PT 10.7 Seconds (9.9-11.8) 05/31/16 14:14 INR 0.99 (0.93-1.08) 05/31/16 14:14 APTT 28.0 Seconds (23.7-30.8) 06/01/16 06:00 - Constitutional Appears: No Acute Distress - Head Exam Head Exam: ATRAUMATIC, NORMOCEPHALIC - Eye Exam Eye Exam: EOMI, PERRL - ENT Exam ENT Exam: Mucous Membranes Moist. absent: Mucous Membranes Dry - Neck Exam Neck Exam: Full ROM. absent: Lymphadenopathy - Cardiovascular Exam Cardiovascular Exam: +S1, +S2. absent: Gallop, Rubs - GI/Abdominal Exam GI & Abdominal Exam: Soft. absent: Distended, Rigid, Tenderness - Extremities Exam Extremities Exam: Full ROM. absent: Pedal Edema - Neurological Exam Neurological Exam: Alert, Awake, Oriented x3 - Psychiatric Exam Psychiatric exam: Normal Affect, Normal Mood - Skin Skin Exam: Normal Color, Warm Assessment and Plan - Assessment and Plan (Free Text) Assessment: Chest Pain r/o ACS CXR - no active disease (please see full report) EKG - unremarkable, sinus tachy at 101, normal axis, normal interval (please see full report) Repeat EKG - no change from previous (please see full report) Troponins negative x 3 D-dimer negative Cardiology, Dr. Osborne, consulted. Help appreciated. Echocardiogram - EF 40-45%, septal hypokinesis. Coreg 3.125 mg po bi Aspirin 81 mg po qd Plan for cardiac catheterization on Sunday 06/04 as per Dizziness DixHallpike test postive per Physical Therapy Orthostatics CT Head negative for acute intracranial abnormality (please see full report) MRI Head negative for acute intracranial abnormality (please see full report) Vitamin B12 level normal Antivert 25 mg po q6h prn Zofran prn for nausea HTN: Coreg 3.125 mg po bid Losartan 12.5 mg po qd Hyperlipidemia: Lipid panel - TG - 506 Lipitor 10 mg po din Diabetes Mellitus Regular Insulin sliding scale Peripheral Neuropathy: Neurontin 100 mg po bid Prophylactic Measures: GI: Protonix 40 mg po qd DVT: SCDs <Ashleigh Santana - Last Filed: 06/02/16 16:15> Objective - Vital Signs/Intake and Output Vital Signs (last 24 hours): Temp Pulse Resp BP Pulse Ox 98.4 F 74 18 116/80 97 06/02/16 12:00 06/02/16 12:00 06/02/16 12:00 06/02/16 12:00 06/01/16 09:00 Intake and Output: 06/02/16 06/02/16 06:59 18:59 Intake Total 720 120 Output Total 900 400 Balance -180 -280 - Medications Medications: Current Medications Aspirin (Aspirin Chewable) 81 mg PO DAILY [facility] Last Admin: 06/02/16 09:31 Dose: 81 mg Atorvastatin Calcium (Lipitor) 10 mg PO DIN [facility] Last Admin: 06/01/16 17:06 Dose: 10 mg Carvedilol (Coreg) 3.125 mg PO BID [facility] Last Admin: 06/02/16 09:34 Dose: 3.125 mg Gabapentin (Neurontin) 100 mg PO BID [facility] PRN Reason: Protocol Last Admin: 06/02/16 09:34 Dose: 100 mg Insulin Human Regular (Humulin R Med) 0 units SC ACHS [facility] PRN Reason: Protocol Last Admin: 06/02/16 12:23 Dose: 5 units Losartan Potassium (Cozaar) 12.5 mg PO DAILY [facility] Last Admin: 06/02/16 09:31 Dose: 12.5 mg Meclizine HCl (Antivert) 25 mg PO Q6 [facility] Last Admin: 06/02/16 12:24 Dose: 25 mg Ondansetron HCl (Zofran Inj) 4 mg IVP Q6 PRN PRN Reason: Nausea/Vomiting Pantoprazole Sodium (Protonix Ec Tab) 40 mg PO ACB [facility] Last Admin: 06/02/16 08:30 Dose: 40 mg - Labs Labs: 06/02/16 07:58 06/02/16 07:58 PT 10.7 Seconds (9.9-11.8) 05/31/16 14:14 INR 0.99 (0.93-1.08) 05/31/16 14:14 APTT 28.0 Seconds (23.7-30.8) 06/01/16 06:00 Attending/Attestation - Attestation I have personally seen and examined this patient.: Yes I have fully participated in the care of the patient.: Yes I have reviewed all pertinent clinical information, including history, physical exam and plan: Yes Notes (Text): I have seen and examined patient at bedside. Agree with the above note with the following additions/exception: This is 61 year old [place] Male with history of HTN, DM2, Hypothyroidism, history of normal cardiac cath in 2009 who got admitted for evaluation of intermittent chest pain, dizziness and vomiting. Chest pain, dizziness and vomiting has resolved. As per patient, his exercise regimen include walking on treadmill following by vigorously turning his head. Dizziness started right after doing this particular exercise. As per PT, sara ziegler pike was positive on the right side. Continue meclizine. Echo revealed EF of 40-45% with septal hypokinesis. Discussed with refinery operator alkylation. Plan for cardiac cath to rule out ischemic cardiomyopathy on Saturday. Serial cardiac iso within normal limits. CT and MRI head is normal. Continue meclizine. Neuro consult appreciated. He also was found to have leukocytosis and elevated lactate. Cultures and procal negative. Hypertriglyceridemia was noted. TG are 503. Life style modifications advised. Continue lipitor. Upon discharge patient will follow up with Dr Haley. Dr Ashleigh Santana
[2016-06-03 07:18] LABS: URINE BILIRUBIN NEGATIVE (NEGATIVE); URINE BLOOD NEGATIVE (NEGATIVE); URINE GLUCOSE (UA) NEGATIVE (NEGATIVE); URINE KETONE NEGATIVE (NEGATIVE); URINE LEUKOCYTE ESTERASE NEGATIVE Leu/uL (NEGATIVE); URINE PROTEIN NEGATIVE mg/dL (<30 mg/dL); URINE UROBILINOGEN 0.2 E.U./dL (<1 E.U./dL)
[2016-06-03 07:35] LABS: ADD MANUAL DIFF? NO
[2016-06-03 07:39] LABS: BASO # 0.02 K/mm3 (0.0-2.0); BASO % 0.2 % (0.0-3.0); EOS # 0.2 (0.0-0.7); EOS % 2.8 % (1.5-5.0); GRAN # 4.79 (1.4-6.5); GRAN % 54.9 % (50.0-68.0); HEMATOCRIT 39.3 % (42.0-52.0); LYMPH # 2.9 (1.2-3.4); LYMPH % 33.5 % (22.0-35.0); MEAN CELL VOLUME 90.1 fL (80.0-105.0); MEAN CORPUSCULAR HEMOGLOBIN 30.5 pg (25.0-35.0); MEAN CORPUSCULAR HGB CONC 33.8 g/dl (31.0-37.0); MEAN PLATELET VOLUME 9.9 fl (7.0-11.0); MONO # 0.8 (0.1-0.6); MONO % 8.6 % (1.0-6.0); PLATELET COUNT 242 10^3/uL (120.0-450.0); RED CELL DISTRIBUTION WIDTH 12.4 % (11.5-14.5); WHITE BLOOD COUNT 8.7 10^3/ul (4.5-11.0)
[2016-06-03] MEDS: Insulin Reg-MEDIUM-Coverage SC SCH ×4 (07:48→22:00)
[2016-06-03] MEDS: Pantoprazole 40 mg EC Tab PO SCH (07:50)
[2016-06-03 07:51] LABS: URINE APPEARANCE CLEAR (CLEAR); URINE COLOR YELLOW (YELLOW)
[2016-06-03 07:57] LABS: ALB/GLOB RATIO 1.1 (1.1-1.8); ALKALINE PHOSPHATASE 58 U/L (38-133); ALT/SGPT 34 U/L (7-56); AST/SGOT 36 U/L (15-59); BILIRUBIN,TOTAL 0.5 mg/dL (0.2-1.3); BLOOD UREA NITROGEN 11 mg/dL (7-21); CALCIUM 9.1 mg/dL (8.4-10.5); CARBON DIOXIDE 24 mmol/L (21-33); CHLORIDE 99 mmol/L (98-107); GFR AFRICAN-AMERICAN > 60; GLUCOSE,RANDOM 226 mg/dL (70-110); PHOSPHOROUS 3.3 mg/dL (2.5-4.5); POTASSIUM 4.2 mmol/L (3.6-5.0); SODIUM 135 mmol/L (132-148); TOTAL PROTEIN 7.3 g/dL (5.8-8.3)
--- NOTE | 2016-06-03 12:34 | CP.PCM.PN ---
Subjective - Date & Time of Evaluation Date of Evaluation: 06/03/16 Time of Evaluation: 09:00 - Subjective Subjective: I have seen and examined patient at bedside. Reports that he is still slightly dizzy at times however denies any chest pain, shortness of breath, palpitations , nausea, vomiting, abdominal pain or urinary complaints. Appetite is good. Patient was informed that he needs to be npo past midnight for cardiac cath tomorrow. Objective - Vital Signs/Intake and Output Vital Signs (last 24 hours): Temp Pulse Resp BP Pulse Ox 97.7 F 74 20 119/73 97 06/03/16 05:45 06/03/16 10:08 06/03/16 05:45 06/03/16 10:08 06/03/16 05:45 Intake and Output: 06/03/16 06/03/16 06:59 18:59 Intake Total 800 Balance 800 - Medications Medications: Current Medications Aspirin (Aspirin Chewable) 81 mg PO DAILY [facility] Last Admin: 06/03/16 10:08 Dose: 81 mg Atorvastatin Calcium (Lipitor) 10 mg PO DIN [facility] Last Admin: 06/02/16 17:41 Dose: 10 mg Carvedilol (Coreg) 3.125 mg PO BID [facility] Last Admin: 06/03/16 10:09 Dose: 3.125 mg Gabapentin (Neurontin) 100 mg PO BID [facility] PRN Reason: Protocol Last Admin: 06/03/16 10:08 Dose: 100 mg Insulin Human Regular (Humulin R Med) 0 units SC ACHS [facility] PRN Reason: Protocol Last Admin: 06/03/16 07:48 Dose: 3 units Losartan Potassium (Cozaar) 12.5 mg PO DAILY [facility] Last Admin: 06/03/16 10:08 Dose: 12.5 mg Meclizine HCl (Antivert) 25 mg PO Q6 [facility] Last Admin: 06/03/16 06:38 Dose: 25 mg Ondansetron HCl (Zofran Inj) 4 mg IVP Q6 PRN PRN Reason: Nausea/Vomiting Pantoprazole Sodium (Protonix Ec Tab) 40 mg PO ACB [facility] Last Admin: 06/03/16 07:50 Dose: 40 mg - Labs Labs: 06/03/16 07:00 06/03/16 07:00 PT 10.7 Seconds (9.9-11.8) 05/31/16 14:14 INR 0.99 (0.93-1.08) 05/31/16 14:14 APTT 28.0 Seconds (23.7-30.8) 06/01/16 06:00 - Constitutional Appears: Well, Non-toxic, No Acute Distress - Head Exam Head Exam: ATRAUMATIC, NORMAL INSPECTION, NORMOCEPHALIC - Eye Exam Eye Exam: EOMI, Normal appearance Pupil Exam: PERRL - ENT Exam ENT Exam: Mucous Membranes Moist. absent: Mucous Membranes Dry - Neck Exam Neck Exam: Full ROM, Normal Inspection. absent: Lymphadenopathy - Respiratory Exam Respiratory Exam: Clear to Ausculation Bilateral, NORMAL BREATHING PATTERN. absent: Accessory Muscle Use, Chest Wall Tenderness, Prolonged Expiratory Phase - Cardiovascular Exam Cardiovascular Exam: REGULAR RHYTHM, +S1, +S2 - GI/Abdominal Exam GI & Abdominal Exam: Soft, Normal Bowel Sounds. absent: Distended, Tenderness - Rectal Exam Rectal Exam: Deferred - Extremities Exam Extremities Exam: Full ROM, Normal Capillary Refill, Normal Inspection - Back Exam Back Exam: Full ROM, NORMAL INSPECTION. absent: CVA tenderness (L), CVA tenderness (R), paraspinal tenderness, rash noted, tenderness, vertebral tenderness - Neurological Exam Neurological Exam: Alert, Awake, CN II-XII Intact, Normal Gait, Oriented x3 Neuro motor strength exam: Left Upper Extremity: 5, Right Upper Extremity: 5, Left Lower Extremity: 5, Right Lower Extremity: 5 - Psychiatric Exam Psychiatric exam: Normal Affect, Normal Mood - Skin Skin Exam: Dry, Intact, Normal Color, Warm Assessment and Plan - Assessment and Plan (Free Text) Plan: This is 61 year old [place] Male with history of HTN, DM2, Hypothyroidism, history of normal cardiac cath in 2009 who got admitted for evaluation of intermittent chest pain, dizziness and vomiting which has resolved now. Dizziness was most likely secondary to BPV. He was also found to have CHF secondary to systolic dysfunction. 1-Chest pain: Resolved now. Serial troponins and EKG did not show changes related to acute OH however echo revealed EF of 40-45% along with septal hypokinesis. Discussed with patient manager who plan to do cardiac cath tomorrow morning to r/o ischemic cardiomyopathy. Continue aspirin, coreg, losartan and lipitor. 2-Dizziness: Most likely secondary to BPV. CT and MRI head is normal. Continue meclizine. Neuro consult appreciated. As per patient, his exercise regimen include walking on treadmill following by vigorously turning his head. Dizziness started right after doing this particular exercise. As per PT, sara karlie pike was positive on the right side. 3-HTN: Stable. Continue coreg and losartan. 4-Uncontrolled DM-2: Not willing to use insulin. Patient reported that his a1c was 10 about a month ago and now its 9. He wants to wait for 3 months atleast before he goes to insulin. 5-Peripheral neuropathy: continue neurontin. 6-GI prophylaxis: continue protonix. 7-DVT prophylaxis: SCD's. 8-Dispo: Upon discharge patient will follow up with Dr Haley.
--- NOTE | 2016-06-03 13:23 | PN ---
DATE: 06/03/2016 SUBJECTIVE: The patient denies any chest pain. PHYSICAL EXAMINATION: VITAL SIGNS: Blood pressure 119/73, heart rate 74, temperature 97.7, respirations 20. HEENT: Normocephalic. NECK: No JVD. CHEST: Clear. HEART: S1, S2 regular. EXTREMITIES: No edema. LABORATORIES: Hemoglobin and hematocrit 13.3 and 39.3, white count and platelet count are within nor mal limits. Today's SMA-7 is within normal limits except for glucose 226. ASSESSMENT: 1. Chest pain, myocardial infarction is ruled out. 2. Ischemic cardiomyopathy. 3. Uncontrolled diabetes mellitus. RECOMMENDATIONS: Continue current aspirin, Coreg, Cozaar, Lipitor, and Synthroid. The patient will undergo cardiac catheterization tomorrow. Jordan Osborne MD cc: [id number] TT: 06/03/2016 13:22:39 Confirmation # [id number] Dictation # [id number] clair
[2016-06-04 05:35] VITALS: O2SAT 100
[2016-06-04 06:45] LABS: ADD MANUAL DIFF? NO
[2016-06-04 07:06] LABS: BASO # 0.02 K/mm3 (0.0-2.0); BASO % 0.3 % (0.0-3.0); EOS # 0.2 (0.0-0.7); EOS % 2.5 % (1.5-5.0); GRAN # 4.22 (1.4-6.5); GRAN % 53.7 % (50.0-68.0); HEMATOCRIT 39.6 % (42.0-52.0); LYMPH # 2.7 (1.2-3.4); MEAN CORPUSCULAR HEMOGLOBIN 30.9 pg (25.0-35.0); MEAN CORPUSCULAR HGB CONC 34.3 g/dl (31.0-37.0); MEAN PLATELET VOLUME 9.9 fl (7.0-11.0); MONO # 0.8 (0.1-0.6); MONO % 9.5 % (1.0-6.0); PLATELET COUNT 246 10^3/uL (120.0-450.0); RED CELL DISTRIBUTION WIDTH 12.4 % (11.5-14.5); WHITE BLOOD COUNT 7.9 10^3/ul (4.5-11.0)
[2016-06-04] MEDS ORDERED: Levothyroxine 25 MCG TAB PO SCH (07:30)
[2016-06-04 08:06] LABS: ALB/GLOB RATIO 1.1 (1.1-1.8); ALKALINE PHOSPHATASE 65 U/L (38-133); ALT/SGPT 38 U/L (7-56); AST/SGOT 44 U/L (15-59); BILIRUBIN,TOTAL 0.7 mg/dL (0.2-1.3); BLOOD UREA NITROGEN 12 mg/dL (7-21); CALCIUM 9.1 mg/dL (8.4-10.5); CARBON DIOXIDE 26 mmol/L (21-33); CHLORIDE 98 mmol/L (98-107); GFR AFRICAN-AMERICAN > 60; GLUCOSE,RANDOM 224 mg/dL (70-110); POTASSIUM 4.1 mmol/L (3.6-5.0); SODIUM 136 mmol/L (132-148); TOTAL PROTEIN 7.5 g/dL (5.8-8.3)
[2016-06-04] MEDS: Insulin Reg-MEDIUM-Coverage SC SCH ×3 (08:07→16:28)
[2016-06-04] MEDS: Pantoprazole 40 mg EC Tab PO SCH (09:15)
--- NOTE | 2016-06-04 10:05 | CP.PCM.PN ---
Subjective - Date & Time of Evaluation Date of Evaluation: 06/04/16 Time of Evaluation: 07:15 Objective - Vital Signs/Intake and Output Vital Signs (last 24 hours): Temp Pulse Resp BP Pulse Ox 97.8 F 69 18 94/53 L 100 06/04/16 05:35 06/04/16 06:00 06/04/16 05:35 06/04/16 05:35 06/04/16 05:35 - Medications Medications: Current Medications Aspirin (Aspirin) 325 mg PO DAILY [facility] Last Admin: 06/04/16 09:15 Dose: 325 mg Atorvastatin Calcium (Lipitor) 10 mg PO DIN [facility] Last Admin: 06/03/16 17:34 Dose: 10 mg Carvedilol (Coreg) 3.125 mg PO BID [facility] Last Admin: 06/03/16 17:35 Dose: 3.125 mg Gabapentin (Neurontin) 100 mg PO BID [facility] PRN Reason: Protocol Last Admin: 06/03/16 17:34 Dose: 100 mg Insulin Human Regular (Humulin R Med) 0 units SC ACHS [facility] PRN Reason: Protocol Last Admin: 06/04/16 08:07 Dose: Not Given Levothyroxine Sodium (Synthroid) 25 mcg PO ACB [facility] Last Admin: 06/04/16 09:16 Dose: 25 mcg Losartan Potassium (Cozaar) 12.5 mg PO DAILY [facility] Last Admin: 06/03/16 10:08 Dose: 12.5 mg Meclizine HCl (Antivert) 25 mg PO Q6 [facility] Last Admin: 06/04/16 06:53 Dose: 25 mg Ondansetron HCl (Zofran Inj) 4 mg IVP Q6 PRN PRN Reason: Nausea/Vomiting Pantoprazole Sodium (Protonix Ec Tab) 40 mg PO ACB [facility] Last Admin: 06/04/16 09:15 Dose: 40 mg - Labs Labs: 06/04/16 06:30 06/04/16 06:30 PT 10.7 Seconds (9.9-11.8) 05/31/16 14:14 INR 0.99 (0.93-1.08) 05/31/16 14:14 APTT 28.0 Seconds (23.7-30.8) 06/01/16 06:00 Assessment and Plan (1) Chest pain Status: Acute (2) Dizziness Status: Acute
[2016-06-04] MEDS ORDERED: Lidocaine 2% Inj (20ml) ONE (13:43)
[2016-06-04] MEDS ORDERED: Midazolam 2 MG/2 ML VIAL ONE (13:52)
--- NOTE | 2016-06-04 14:47 | CARDCATH ---
PROCEDURE DATE: 06/04/2016 The patient is a 61-year-old male who has a history of hypertension and diabetes mellitus, p resented because of chest pain. Echocardiograph study was consistent with depressed ejection f raction with segmental hypokinesis involving the septum. Cardiac catheterization was recommended. T he procedure and its risks were fully explained to the patient, who understood and agreed for the pro cedure. PROCEDURE: Left and right coronary angiography were performed with 6-Kazakh JL4 and JR4 diagnostic c atheter. Left ventriculogram performed with 6-Kazakh pigtail catheter. The patient tolerated the pr ocedure well without any complications. ANGIOGRAPHIC FINDINGS: Selective injection of left coronary artery revealed a large caliber left cathy n that into a medium sized LAD, a small ramus and a large caliber codominant circumflex artery. Entire left coronary circulation was angiographically unremarkable. Selective injection of right c oronary artery revealed a medium sized codominant vessel that had an insignificant proximal narrowing , most likely due a catheter-induced spasm. Left ventriculogram performed in SORIANO projection revealed normal wall motion. Ejection fraction was about 55%. CONCLUSION: Insignificant proximal right coronary artery disease with normal systolic function. RECOMMENDATIONS: A search for noncardiac cause of chest pain is recommended. In the meantime, the p atient should be maintained on low-dose nitrate therapy for possible coronary spasm. Jordan Osborne MD cc: [phone] TT: 06/04/2016 14:46:33 en
[2016-06-04 18:13] VITALS: RESP 18
[2016-06-04 20:56] VITALS: BP 118/68; PULSE 92; TEMP 98.2
--- NOTE | 2016-06-04 21:37 | CP.PCM.DIS ---
Provider - Provider Date of Admission: 06/01/16 16:46 Attending physician: Ashleigh Santana MD Primary care physician: Marlon Haley MD Time Spent in preparation of Discharge (in minutes): 35 Diagnosis - Discharge Diagnosis (1) Chest pain Status: Acute (2) Dizziness Status: Acute Hospital Course - Lab Results Lab Results: Most Recent Lab Values WBC 7.9 10^3/ul (4.5-11.0) 06/04/16 06:30 RBC 4.40 10^6/uL (3.5-6.1) 06/04/16 06:30 Hgb 13.6 gm/dL (14.0-18.0) L 06/04/16 06:30 Hct 39.6 % (42.0-52.0) L 06/04/16 06:30 MCV 90.0 fL (80.0-105.0) 06/04/16 06:30 MCH 30.9 pg (25.0-35.0) 06/04/16 06:30 MCHC 34.3 g/dl (31.0-37.0) 06/04/16 06:30 RDW 12.4 % (11.5-14.5) 06/04/16 06:30 Plt Count 246 10^3/uL (120.0-450.0) 06/04/16 06:30 MPV 9.9 fl (7.0-11.0) 06/04/16 06:30 Gran % 53.7 % (50.0-68.0) 06/04/16 06:30 Lymph % (Auto) 34.0 % (22.0-35.0) 06/04/16 06:30 [place] % (Auto) 9.5 % (1.0-6.0) H 06/04/16 06:30 Eos % (Auto) 2.5 % (1.5-5.0) 06/04/16 06:30 Baso % (Auto) 0.3 % (0.0-3.0) 06/04/16 06:30 Gran # 4.22 (1.4-6.5) 06/04/16 06:30 Lymph # 2.7 (1.2-3.4) 06/04/16 06:30 [place] # 0.8 (0.1-0.6) H 06/04/16 06:30 Eos # 0.2 (0.0-0.7) 06/04/16 06:30 Baso # 0.02 K/mm3 (0.0-2.0) 06/04/16 06:30 PT 10.7 Seconds (9.9-11.8) 05/31/16 14:14 INR 0.99 (0.93-1.08) 05/31/16 14:14 APTT 28.0 Seconds (23.7-30.8) 06/01/16 06:00 D-Dimer, Quantitative 0.19 mg/L FEU (0-0.50) 05/31/16 21:55 pO2 25 mm/Hg (30-55) L 06/01/16 19:45 VBG pH 7.40 (7.32-7.43) 06/01/16 19:45 VBG pCO2 54.0 (40-60) 06/01/16 19:45 VBG HCO3 33.4 mmol/l (21-28) H 06/01/16 19:45 VBG Total CO2 35.1 mmol.L (22-28) H 06/01/16 19:45 VBG O2 Sat (Calc) 59.5 % (40-65) 06/01/16 19:45 VBG Base Excess 7.0 mmol/L (0.0-2.0) H 06/01/16 19:45 VBG Potassium 4.4 mmol/L (3.6-5.2) 06/01/16 19:45 Sodium 138.0 mmol/L (132-148) 06/01/16 19:45 Chloride 104.0 mmol/L (98-107) 06/01/16 19:45 Glucose 188 mg/dl (75-110) H 06/01/16 19:45 Lactate 1.5 mmol/L (0.7-2.1) 06/01/16 19:45 FiO2 21.0 % 06/01/16 19:45 Sodium 136 mmol/L (132-148) 06/04/16 06:30 Potassium 4.1 mmol/L (3.6-5.0) 06/04/16 06:30 Chloride 98 mmol/L (98-107) 06/04/16 06:30 Carbon Dioxide 26 mmol/L (21-33) 06/04/16 06:30 Anion Gap 16 (10-20) 06/04/16 06:30 BUN 12 mg/dL (7-21) 06/04/16 06:30 Creatinine 0.7 mg/dL (0.5-1.4) 06/04/16 06:30 Est GFR ( Amer) > 60 06/04/16 06:30 Est GFR (Non-Af Amer) > 60 06/04/16 06:30 POC Glucose (mg/dL) 285 mg/dL (65-110) H 06/02/16 11:43 Random Glucose 224 mg/dL (70-110) H 06/04/16 06:30 Hemoglobin A1c 9.0 % (4.2-6.5) H 05/31/16 14:14 Calcium 9.1 mg/dL (8.4-10.5) 06/04/16 06:30 Phosphorus 3.3 mg/dL (2.5-4.5) 06/03/16 07:00 Magnesium 2.0 mg/dL (1.7-2.2) 06/03/16 07:00 Total Bilirubin 0.7 mg/dL (0.2-1.3) 06/04/16 06:30 AST 44 U/L (15-59) 06/04/16 06:30 ALT 38 U/L (7-56) 06/04/16 06:30 Alkaline Phosphatase 65 U/L (38-133) 06/04/16 06:30 Lactate Dehydrogenase 331 U/L (333-699) L 06/01/16 06:00 Total Creatine Kinase 70 U/L (35-230) 06/01/16 06:00 Troponin I 0.02 ng/mL D 06/01/16 06:00 NT-Pro-B Natriuret Pep 114 pg/mL (0-450) 05/31/16 14:14 Total Protein 7.5 g/dL (5.8-8.3) 06/04/16 06:30 Albumin 4.0 g/dL (3.0-4.8) 06/04/16 06:30 Globulin 3.5 gm/dL 06/04/16 06:30 Albumin/Globulin Ratio 1.1 (1.1-1.8) 06/04/16 06:30 Triglycerides 506 mg/dL (35-160) H 05/31/16 14:14 Cholesterol 164 mg/dL (130-200) 05/31/16 14:14 LDL Cholesterol Direct 67 mg/dL (0-129) 05/31/16 14:14 HDL Cholesterol 37 mg/dL (29-60) 05/31/16 14:14 Lipase 198 U/L (23-300) 05/31/16 14:14 Vitamin B12 266 pg/mL (239-931) 05/31/16 14:14 Procalcitonin 0.05 NG/ML (0.19-0.49) L 05/31/16 21:55 Thyroxine (T4) 8.2 ug/dL (5.5-11.0) 05/31/16 21:55 Total T3 1.21 ng/mL (0.97-1.69) 05/31/16 21:55 TSH 3rd Generation 3.42 mIU/mL (0.46-4.68) 05/31/16 21:55 Venous Blood Potassium 4.4 mmol/L (3.6-5.2) 06/01/16 19:45 Urine Color Yellow (YELLOW) 06/03/16 06:52 Urine Appearance Clear (CLEAR) 06/03/16 06:52 Urine pH 6.0 (4.7-8.0) 06/03/16 06:52 Ur Specific [place] 1.020 (1.005-1.035) 06/03/16 06:52 Urine Protein Negative mg/dL (<30 mg/dL) 06/03/16 06:52 Urine Glucose (UA) Negative mg/dL (NEGATIVE) 06/03/16 06:52 Urine Ketones Negative mg/dL (NEGATIVE) 06/03/16 06:52 Urine Blood Negative (NEGATIVE) 06/03/16 06:52 Urine Nitrate Negative (NEGATIVE) 06/03/16 06:52 Urine Bilirubin Negative (NEGATIVE) 06/03/16 06:52 Urine Urobilinogen 0.2 E.U./dL (<1 E.U./dL) 06/03/16 06:52 Ur Leukocyte Esterase Negative Som/uL (NEGATIVE) 06/03/16 06:52 Discharge Exam - Head Exam Head Exam: ATRAUMATIC, NORMAL INSPECTION, NORMOCEPHALIC - Eye Exam Eye Exam: EOMI Pupil Exam: NORMAL ACCOMODATION - ENT Exam ENT Exam: Mucous Membranes Moist - Neck Exam Neck exam: Full Rom - Respiratory Exam Respiratory Exam: Clear to PA & Lateral, NORMAL BREATHING PATTERN, UNREMARKABLE. absent: Wheezes - Cardiovascular Exam Cardiovascular Exam: REGULAR RHYTHM, RRR, +S1, +S2. absent: JVD - GI/Abdominal Exam GI & Abdominal Exam: Normal Bowel Sounds, Unremarkable. absent: Distended, Guarding - Extremities Exam Extremities exam: full ROM, pedal pulses present - Back Exam Back exam: NORMAL INSPECTION - Neurological Exam Neurological exam: Alert, CN II-XII Intact, Normal Gait, Oriented x3 - Psychiatric Exam Psychiatric exam: Normal Affect, Normal Mood - Skin Skin Exam: Dry, Intact, Normal Color, Warm Discharge Plan - Discharge Medications Prescriptions: Isosorbide Mononitrate [Imdur] 30 mg PO DAILY #30 tab Meclizine [Meclizine*] 25 mg PO Q6 #120 tab - Follow Up Plan Condition: GOOD Disposition: HOME/ ROUTINE Instructions: Angina (DC), Left Heart Catheterization (DC), Heart Healthy Diet (DC) Additional Instructions: Patient is medically stable for discharge. Please follow up with your primary care, Dr. Haley within one week. Please restart your home medications. You have 2 new medications. Meclizine for dizziness and Imdur for chest pain. Please return to the hospital if your symptoms return or any new concerning symptoms arise. Thank you for allowing us to take part in your care. Referrals: Marlon Haley [Primary Care Provider] -
== END 2016-06-04 22:34 | disposition home or self-care (01) | DRG 125 ==
LOC: ED 13:51 → ERH 14:50 → 2RNO 18:31 → OBSVTOIN 06-01 16:46
PROVIDERS: ADMIT Hospitalist; ATTEND Hospitalist
PROC: 4A023N7 Measurement of Cardiac Sampling and Pressure, Left Heart, Percutaneous Approach (ICD-10-PCS; principal; 2016-06-04)
PROC: B2051ZZ Plain Radiography of Left Heart using Low Osmolar Contrast (ICD-10-PCS; 2016-06-04)
PROC: B2011ZZ Plain Radiography of Multiple Coronary Arteries using Low Osmolar Contrast (ICD-10-PCS; 2016-06-04)
DX: I25.10 Atherosclerotic heart disease of native coronary artery without angina pectoris (principal); E11.42 Type 2 diabetes mellitus with diabetic polyneuropathy; E11.65 Type 2 diabetes mellitus with hyperglycemia; I10 Essential (primary) hypertension; H81.20 Vestibular neuronitis, unspecified ear; E03.9 Hypothyroidism, unspecified; E78.1 Pure hyperglyceridemia; D72.829 Elevated white blood cell count, unspecified; I25.5 Ischemic cardiomyopathy; Z79.84 Long term (current) use of oral hypoglycemic drugs

== ENCOUNTER 2016-06-15 16:19 | Emergency (ER) | payer MEDICAID, OTHER ==
[2016-06-15 17:10] VITALS: BMI 39.0
[2016-06-15 17:13] VITALS: RESP 16
[2016-06-15 17:22] VITALS: TEMP 97.7
[2016-06-15] MEDS ORDERED: Sodium Chloride 0.9% 1,000 ML IV STA (17:51)
--- NOTE | 2016-06-15 18:02 | ED PDOC ---
Arrival/HPI - General Historian: Patient - History of Present Illness Time/Duration: 1-3 hours Symptom Onset: Sudden Symptom Course: Improving Quality: Throbbing Severity Level: 6 Activities at Onset: Rest Context: Sitting <Taras Haley - Last Filed: 06/15/16 19:25> <Av Nolasco - Last Filed: 06/15/16 22:21> - General Chief Complaint: Headache Time Seen by Provider: 06/15/16 17:08 - History of Present Illness Narrative History of Present Illness (Text): 06/15/16 17:53 61 M with PMHx of HLD, DM, hypothyroidism, and HTN presents to [facility] ED with complaints of dizziness and headache. Pt describes symptoms as arising late in the afternoon - he started to feel dizzy while driving and stopping at a stop sign, decided to cotton puller and call his . His brought him to the ED. Pt reports similar symptoms in the past, most recently a couple of weeks ago for which he was hospitalized. Pt reports having a midline headache that radiates to the back of the pts neck, approx 6/10 in intensity, intermittent and throbbing in nature. Pt denied fever, loc, blurry vision, sob, chest pains, palpitations, abdominal pains, n/v/d/c or urinary symptoms. PMD: Dr. Geiger Superintendent Laundry: Dr. Osborne (Taras Haley) Past Medical History - Infectious Disease Hx of Infectious Diseases: None - Tetanus Immunization Tetanus Immunization: Unknown - Cardiac Hx Cardiac Disorders: Yes - Endocrine/Metabolic Hx Diabetes Mellitus Type 2: Yes - Musculoskeletal/Rheumatological Hx Falls: No - Psychiatric Hx Depression: No Hx Emotional Abuse: No Hx Physical Abuse: No Hx Substance Use: No - Surgical History Hx Cardiac Catheterization: Yes (4 years ago negative) - Anesthesia Hx Anesthesia: No Hx Anesthesia Reactions: No Hx Malignant Hyperthermia: No - Suicidal Assessment Feels Threatened In Home Enviroment: No <Taras Haley - Last Filed: 06/15/16 19:25> Family/Social History Family/Social History: No Known Family HX Smoking Status: Never Smoked Hx Alcohol Use: No Hx Substance Use: No Hx Substance Use Treatment: No <Taras Haley - Last Filed: 06/15/16 19:25> Allergies/Home Meds <Taras Haley - Last Filed: 06/15/16 19:25> <Av Nolasco - Last Filed: 06/15/16 22:21> Allergies/Adverse Reactions: Allergies No Known Allergies Allergy (Verified 11/04/13 05:46) Home Medications: Home Meds Medication Instructions Recorded Confirmed Gabapentin 100 mg PO BID 06/01/16 06/04/16 Glipizide [Glipizide ER] 5 mg PO BID 06/01/16 06/01/16 Levothyroxine [Synthroid] 0.025 mg PO DAILY 06/01/16 06/01/16 MetFORMIN [glucoPHAGE] 1,000 mg PO BID 06/01/16 06/01/16 Pravastatin Sodium [Pravachol] 20 mg PO DAILY 06/01/16 06/01/16 Review of Systems - Review of Systems Constitutional: absent: Fatigue, Fevers Eyes: absent: Vision Changes, Photophobia ENT: absent: Tinnitus, Rhinorrhea Respiratory: absent: SOB, Cough, Sputum Cardiovascular: absent: Chest Pain, Palpitations, Edema Gastrointestinal: absent: Abdominal Pain, Stool Changes, Diarrhea, Nausea, Vomiting Genitourinary Male: absent: Dysuria, Hematuria Neurological: Headache, Dizziness. absent: Focal Weakness <Taars Haley - Last Filed: 06/15/16 19:25> Physical Exam Temperature: Afebrile Blood Pressure: Normal Pulse: Regular Respiratory Rate: Normal Appearance: Positive for: Well-Appearing, Non-Toxic, Comfortable Pain Distress: Mild Mental Status: Positive for: Alert and Oriented X 3 - Systems Exam Head: Present: Atraumatic, Normocephalic Pupils: Present: PERRL Extroacular Muscles: Present: EOMI Conjunctiva: Present: Normal Mouth: Present: Moist Mucous Membranes Neck: Present: Normal Range of Motion Respiratory/Chest: Present: Clear to Auscultation, Good Air Exchange. No: Respiratory Distress, Accessory Muscle Use Cardiovascular: Present: Regular Rate and Rhythm, Normal S1, S2. No: Murmurs Abdomen: Present: Normal Bowel Sounds. No: Tenderness, Distention, Peritoneal Signs Upper Extremity: Present: Normal Inspection. No: Cyanosis, Edema Lower Extremity: Present: Normal Inspection. No: Edema Neurological: Present: GCS=15, CN II-XII Intact, Speech Normal Skin: Present: Warm, Dry, Normal Color. No: Rashes Psychiatric: Present: Alert, Oriented x 3, Normal Insight, Normal Concentration <Taras Haley - Last Filed: 06/15/16 19:25> Vital Signs Temp Pulse Resp BP Pulse Ox 06/15/16 19:34 81 16 161/90 H 99 06/15/16 18:49 84 16 154/98 H 98 06/15/16 17:22 97.7 F 75 16 136/88 99 06/15/16 17:10 98.1 F 82 16 147/84 98 Medical Decision Making <Taras Haley - Last Filed: 06/15/16 19:25> - EKG Interpretation Interpreted by ED Physician: Yes Type: 12 lead EKG <Av Nolasco - Last Filed: 06/15/16 22:21> ED Course and Treatment: 06/15/16 18:04 61 M with PMHx HLD, DM, HTN, hypothyroidism presents with complaints of headache /dizziness. - CBC - CMP - UA - EKG - IVF - Meclizine - Reassess and dispo (Taras Haley) 06/15/16 22:18 Patient seen and evaluated with medical authorization specialist. Prior visit and admission reviewed, including patient's recent cardiac catheterization as well as admission note. He reports sudden onset of dizziness, spinning sensation to me. No headache or chest pain. On exam, EKG unremarkable, and patient with no focal neuro deficits. Meclizine given and on re-evaluation dizziness resolved. No arrhythmias noted and patient is comfortable, ambulatory, afebrile, with no respiratory distress. Advised taking Meclizine as directed and follow-up with PMD and neurologist. No symptoms on re-evaluation. (Av Nolasco) - Lab Interpretations Lab Results: 06/15/16 18:07 06/15/16 18:07 Lab Results 06/15/16 19:23: POC Glucose (mg/dL) 162 H 06/15/16 18:54: Urine Color Yellow, Urine Appearance Clear, Urine pH 5.5, Ur Specific [place] 1.020, Urine Protein Negative, Urine Glucose (UA) Negative, Urine Ketones Negative, Urine Blood Negative, Urine Nitrate Negative, Urine Bilirubin Negative, Urine Urobilinogen 0.2, Ur Leukocyte Esterase Negative 06/15/16 18:07: WBC 9.3, RBC 4.40, Hgb 13.8 L, Hct 39.8 L, MCV 90.5, MCH 31.4, MCHC 34.7, RDW 12.4, Plt Count 300, MPV 9.8, Gran % 53.2, Lymph % (Auto) 36.6 H , [place] % (Auto) 7.3 H, Eos % (Auto) 2.5, Baso % (Auto) 0.4, Gran # 4.93, Lymph # 3.4, [place] # 0.7 H, Eos # 0.2, Baso # 0.04, Sodium 135, Potassium 4.6, Chloride 97 L, Carbon Dioxide 27, Anion Gap 16, BUN 15, Creatinine 0.8, Est GFR ( Amer) > 60, Est GFR (Non-Af Amer) > 60, Random Glucose 198 H, Calcium 9.9, Total Bilirubin 0.4, AST 36, ALT 31, Alkaline Phosphatase 80, Total Protein 8.3, Albumin 4.5, Globulin 3.8, Albumin/Globulin Ratio 1.2 06/15/16 18:05: POC Glucose (mg/dL) 226 H - EKG Interpretation EKG Interpretation (Text): 06/15/16 22:20 EKG 18:11 normal sinus rhythm rate of 77, no acute st elevations (Av Nolasco) - Medication Orders Current Medication Orders: Discontinued Medications Sodium Chloride (Sodium Chloride 0.9%) 1,000 mls @ 999 mls/hr IV .Q1H1M STA Stop: 06/15/16 18:51 Last Admin: 06/15/16 18:13 Dose: 999 MLS/HR eMAR Start Stop Document 06/15/16 18:13 [email or web address] (Rec: 06/15/16 18:13 [id number] [id number]) Intravenous Solution Start Date 06/15/16 Start Time 18:13 End Date 06/15/16 End time 19:14 Total Infusion Time 61 Meclizine HCl (Antivert) 25 mg PO STAT STA Stop: 06/15/16 17:52 Last Admin: 06/15/16 18:12 Dose: 25 MG - PA / QUANTITATIVE MANAGER / Resident Statement / has reviewed & agrees with the documentation as recorded. / has examined the patient and agrees with the treatment plan. <Av Nolasco - Last Filed: 06/15/16 22:21> Disposition/Present on Arrival - Present on Arrival Any Indicators Present on Arrival: No History of DVT/PE: No History of Uncontrolled Diabetes: No Urinary Catheter: No History of Decub. Ulcer: No History Surgical Site Infection Following: None - Disposition Have Diagnosis and Disposition been Completed?: Yes Disposition Time: 19:30 <Taras Haley - Last Filed: 06/15/16 19:25> <ConstanceAv - Last Filed: 06/15/16 22:21> - Disposition Diagnosis: Dizziness Disposition: HOME/ ROUTINE Patient Problems: Current Active Problems Problem Status Diagnosed Chest pain Acute Condition: IMPROVED Discharge Instructions (ExitCare): Dizziness (ED) Additional Instructions: 1. Pt is to fu with PMD or [facility] clinic within 1 week 2. Pt is to fu with Neurologist as per PMD within 1 week 3. Pt is welcomed to return to [facility] ED if any acute symptoms develop Prescriptions: Meclizine [Antivert] 25 mg PO Q6 PRN #12 tab PRN Reason: Dizziness Referrals: PCP,NO [Primary Care Provider] - Follow up with primary
[2016-06-15 18:14] LABS: ADD MANUAL DIFF? NO
[2016-06-15 18:27] LABS: ALB/GLOB RATIO 1.2 (1.1-1.8); ALKALINE PHOSPHATASE 80 U/L (38-133); ALT/SGPT 31 U/L (7-56); AST/SGOT 36 U/L (15-59); BILIRUBIN,TOTAL 0.4 mg/dL (0.2-1.3); BLOOD UREA NITROGEN 15 mg/dL (7-21); CALCIUM 9.9 mg/dL (8.4-10.5); CARBON DIOXIDE 27 mmol/L (21-33); CHLORIDE 97 mmol/L (98-107); GFR AFRICAN-AMERICAN > 60; GLUCOSE,RANDOM 198 mg/dL (70-110); POTASSIUM 4.6 mmol/L (3.6-5.0); SODIUM 135 mmol/L (132-148); TOTAL PROTEIN 8.3 g/dL (5.8-8.3)
[2016-06-15 18:34] LABS: BASO # 0.04 K/mm3 (0.0-2.0); BASO % 0.4 % (0.0-3.0); EOS # 0.2 (0.0-0.7); EOS % 2.5 % (1.5-5.0); GRAN # 4.93 (1.4-6.5); GRAN % 53.2 % (50.0-68.0); HEMATOCRIT 39.8 % (42.0-52.0); LYMPH # 3.4 (1.2-3.4); LYMPH % 36.6 % (22.0-35.0); MEAN CELL VOLUME 90.5 fL (80.0-105.0); MEAN CORPUSCULAR HEMOGLOBIN 31.4 pg (25.0-35.0); MEAN CORPUSCULAR HGB CONC 34.7 g/dl (31.0-37.0); MEAN PLATELET VOLUME 9.8 fl (7.0-11.0); MONO # 0.7 (0.1-0.6); MONO % 7.3 % (1.0-6.0); PLATELET COUNT 300 10^3/uL (120.0-450.0); RED CELL DISTRIBUTION WIDTH 12.4 % (11.5-14.5); WHITE BLOOD COUNT 9.3 10^3/ul (4.5-11.0)
[2016-06-15 19:04] LABS: PH,URINE 5.5 (4.7-8.0); URINE APPEARANCE CLEAR (CLEAR); URINE BILIRUBIN NEGATIVE (NEGATIVE); URINE BLOOD NEGATIVE (NEGATIVE); URINE COLOR YELLOW (YELLOW); URINE GLUCOSE (UA) NEGATIVE (NEGATIVE); URINE KETONE NEGATIVE (NEGATIVE); URINE LEUKOCYTE ESTERASE NEGATIVE Leu/uL (NEGATIVE); URINE PROTEIN NEGATIVE mg/dL (<30 mg/dL); URINE UROBILINOGEN 0.2 E.U./dL (<1 E.U./dL)
[2016-06-15 19:35] VITALS: BP 161/90; PULSE 81; O2SAT 99
--- NOTE | 2016-06-16 08:23 | CARD ---
APPROVED REPORT EKG Measurement Heart [id number] <Conclusion> Normal sinus rhythm Possible Lateral infarct, age undetermined Abnormal ECG
== END 2016-06-15 19:35 | disposition home or self-care (01) ==
LOC: ED 16:19
DX: R42 Dizziness and giddiness (principal); E78.5 Hyperlipidemia, unspecified; E11.9 Type 2 diabetes mellitus without complications; E03.9 Hypothyroidism, unspecified; I10 Essential (primary) hypertension
CPT/HCPCS: 80053; 81003; 82948; 85025; 93005; 96360; 99285; J7040